=== PATIENT | female | born 1970 | race Caucasian/White ===

== ENCOUNTER 2016-11-25 23:41 | Observation (INO) | payer OTHER ==
[2016-11-26] MEDS ORDERED: NS 1,000 ML IV ONE (00:01)
--- NOTE | 2016-11-26 00:07 | EDPHY ---
H & P Stated Complaint: SnS of bowel obstruction starting today, last one in 2000 Time Seen by Provider: 11/25/16 23:50 HPI/ROS: HPI The patient presents with abdominal pain which is diffuse, cramping and occasionally sharp in nature which has been mostly constant since about 5:00 p.m. today. She has had diarrhea yesterday and today and then developed these symptoms after returning home from a medical conference. She has felt nauseated though is able to tolerate fluids by mouth. She has not had a fever, she denies any known sick contacts. She says her symptoms feel similar as to when she had the volvulus in 2001. REVIEW OF SYSTEMS Constitutional: No fever, no chills. Eyes: No discharge. ENT: No sore throat. Cardiovascular: No chest pain, no palpitations. Respiratory: No cough, no shortness of breath. Gastrointestinal: No abdominal pain, no vomiting. Genitourinary: No hematuria. Musculoskeletal: No back pain. Skin: No rashes. Neurological: No headache. 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 Neurological: A&O, moves all extremities Skin: Warm and dry, no rashes Musculoskeletal: Neck is supple non tender Extremities: symmetrical, full range of motion Psychiatric: Patient is oriented X 3, there is no agitation Source: Patient Exam Limitations: No limitations - Personal History LMP (Females 10-55): 8-14 Days Ago Current Tetanus/Diphtheria Vaccine: Yes Current Tetanus Diphtheria and Acellular Pertussis (TDAP): Yes Tetanus Vaccine Date: 2015 - Medical/Surgical History Hx Asthma: No Hx Chronic Respiratory Disease: No Hx Diabetes: No Hx Cardiac Disease: No Hx Renal Disease: No Hx Cirrhosis: No Hx Alcoholism: No Hx HIV/AIDS: No Hx Splenectomy or Spleen Trauma: No Other PMH: chrohn's, bowel resection 2000 - Social History Smoking Status: Never smoked Constitutional: Initial Vital Signs Temperature (C) 36.5 C 11/25/16 23:46 Heart Rate 84 11/25/16 23:46 Respiratory Rate 16 11/25/16 23:46 Blood Pressure 127/63 H 11/25/16 23:46 O2 Sat (%) 97 11/25/16 23:46 O2 Delivery Mode Room Air Allergies/Adverse Reactions: morphine Allergy (Verified 11/25/16 23:46) Penicillins Allergy (Verified 11/25/16 23:46) Home Medications: Medication Instructions Recorded Questran 11/25/16 Seroquel 25 mg (*) 11/25/16 Vitamin B12 11/25/16 Medical Decision Making - Diagnostics Imaging Results: KUB two views shows nonspecific bowel gas pattern in the colon, I reviewed these images and discussed them with Dr. Mark. CT scan abdomen pelvis with IV contrast demonstrates a clustered collection of small bowel in the left flank associated with a few surgical clips, bowel loops entering and exiting the area have edema and fluid between them which is suspicious for internal hernia versus an adhesion. Higher in the left abdomen there is a 7 cm loop of mildly edematous jejunum with fecalization of the duodenum and proximal jejunum, I have discussed this with Dr. Mark of Radiology. Differential Diagnosis: This is a 46-year-old female with history of Crohn's disease status post hemicolectomy remotely and volvulus with bowel resection [place] [address] Christensen, presenting now with abdominal pain, diarrhea, nausea. Differential diagnosis includes small bowel obstruction, recurrence of Crohn's, gastroenteritis. In the emergency room, the patient was given IV fluids and a dose of Dilaudid with improvement in her symptoms. Labs were checked and revealed a leukocytosis and slight elevation in her ALT and AST. Abdominal series was initially performed to avoid a CT scan. This demonstrated nonspecific gas pattern throughout the colon. I discussed the case with the surgeon on-call for Dr. Christensen, Dr. Lu. He agrees with plan for admission and surgical consult in the morning. I discussed the results patient's studies with her and she agreed to proceed with CT scan which raises suspicion for partial or early small bowel obstruction in the left flank. Given patient's improvement in her symptoms, I will not place an NG tube currently, she is not vomiting. I discussed the case with Dr. Deyvi Pastrana of the hospitalist service who will admit the patient. I have ordered her bed in the hospital. I have discussed the plan with her. - Data Points Laboratory Results: Laboratory Results 11/26/16 00:00 11/26/16 00:00 11/26/16 11/26/16 00:00 00:00 WBC 14.76 10^3/uL H 10^3/uL (3.80-9.50) RBC 5.16 10^6/uL 10^6/uL (4.18-5.33) Hgb 14.6 g/dL g/dL (12.6-16.3) Hct 43.5 % % (38.0-47.0) MCV 84.3 fL fL (81.5-99.8) MCH 28.3 pg pg (27.9-34.1) MCHC 33.6 g/dL g/dL (32.4-36.7) RDW 13.0 % % (11.5-15.2) Plt Count 353 10^3/uL 10^3/uL (150-400) MPV 9.5 fL fL (8.7-11.7) Neut % (Auto) 84.3 % H % (39.3-74.2) Lymph % (Auto) 9.4 % L % (15.0-45.0) [place] % (Auto) 5.3 % % (4.5-13.0) Eos % (Auto) 0.4 % L % (0.6-7.6) Baso % (Auto) 0.3 % % (0.3-1.7) Nucleat RBC Rel Count 0.0 % % (0.0-0.2) Absolute Neuts (auto) 12.44 10^3/uL H 10^3/uL (1.70-6.50) Absolute Lymphs (auto) 1.39 10^3/uL 10^3/uL (1.00-3.00) Absolute Monos (auto) 0.78 10^3/uL 10^3/uL (0.30-0.80) Absolute Eos (auto) 0.06 10^3/uL 10^3/uL (0.03-0.40) Absolute Basos (auto) 0.04 10^3/uL 10^3/uL (0.02-0.10) Absolute Nucleated RBC 0.00 10^3/uL 10^3/uL (0-0.01) Immature Gran % 0.3 % % (0.0-1.1) Immature Gran # 0.05 10^3/uL 10^3/uL (0.00-0.10) Sodium 136 mEq/L mEq/L (134-144) Potassium 4.0 mEq/L mEq/L (3.5-5.2) Chloride 105 mEq/L mEq/L (97-110) Carbon Dioxide 23 mEq/l mEq/l (22-31) Anion Gap 8 mEq/L mEq/L (8-16) BUN 12 mg/dL mg/dL (7-23) Creatinine 0.8 mg/dL mg/dL (0.6-1.0) Estimated GFR > 60 Glucose 94 mg/dL mg/dL (70-100) Calcium 9.4 mg/dL mg/dL (8.5-10.4) Total Bilirubin 0.9 mg/dL mg/dL (0.1-1.4) AST 51 IU/L H IU/L (14-46) ALT 75 IU/L H IU/L (9-52) Alkaline Phosphatase 81 IU/L IU/L (38-126) Total Protein 7.0 g/dL g/dL (6.3-8.2) Albumin 4.2 g/dL g/dL (3.5-5.0) Medications Given: Discontinued Medications Hydromorphone HCl (Dilaudid) 0.5 mg IVP EDNOW ONE Stop: 11/26/16 00:18 Last Admin: 11/26/16 00:41 Dose: 0.5 mg Sodium Chloride (Ns) 1,000 mls @ 0 mls/hr IV ONCE ONE PRN Reason: Wide Open Stop: 11/26/16 00:02 Last Admin: 11/26/16 00:12 Dose: 1,000 mls Ondansetron HCl (Zofran) 4 mg IVP EDNOW ONE Stop: 11/26/16 00:18 Last Admin: 11/26/16 00:42 Dose: 4 mg Departure - Departure Disposition: [facility] Acute Clinical Impression: Partial small bowel obstruction Leukocytosis Qualifiers: Leukocytosis type: unspecified Qualified Code(s): D72.829 - Elevated white blood cell count, unspecified Abdominal pain Qualifiers: Abdominal location: generalized Qualified Code(s): R10.84 - Generalized abdominal pain Condition: Fair
[2016-11-26 00:15] LABS: % IMMATURE GRANULYOCYTES 0.3 % (0.0-1.1); ABSOLUTE IMMATURE GRANULOCYTES 0.05 10^3/uL (0.00-0.10); ADD DIFF? NO; ADD MORPH? NO; ADD SCAN? NO; ATYPICAL LYMPHOCYTE FLAG 0 (0-99); FRAGMENT RBC FLAG 0 (0-99); HEMATOCRIT 43.5 % (38.0-47.0); HEMOGLOBIN 14.6 g/dL (12.6-16.3); LEFT SHIFT FLG 0 (0-99); LIPEMIA HEMOLYSIS FLAG 80 (0-99); MEAN CELL HEMOGLOBIN 28.3 pg (27.9-34.1); MEAN CELL HEMOGLOBIN CONCENTR. 33.6 g/dL (32.4-36.7); MEAN CELL VOLUME 84.3 fL (81.5-99.8); MEAN PLATELET VOLUME 9.5 fL (8.7-11.7); PLATELET CLUMPS FLAG 0 (0-99); PLATELET COUNT 353 10^3/uL (150-400); RED BLOOD CELL COUNT 5.16 10^6/uL (4.18-5.33)
[2016-11-26] MEDS ORDERED: HYDROmorphONE/DILAUDID 1 MG/ML SYR IVP ONE (00:17)
[2016-11-26] MEDS ORDERED: ONDANSETRON 4 MG/2 ML VIAL IVP ONE (00:17)
[2016-11-26 00:25] LABS: ALANINE AMINOTRANSFERASE 75 IU/L (9-52); ALBUMIN 4.2 g/dL (3.5-5.0); ALKALINE PHOSPHATASE 81 IU/L (38-126); ANION GAP 8 mEq/L (8-16); ASPARTATE AMINOTRANSFERASE 51 IU/L (14-46); BILIRUBIN,TOTAL 0.9 mg/dL (0.1-1.4); CALCIUM 9.4 mg/dL (8.5-10.4); CARBON DIOXIDE 23 mEq/l (22-31); CHLORIDE 105 mEq/L (97-110); CREATININE 0.8 mg/dL (0.6-1.0); GLOMERULAR FILTRATION RATE > 60; GLUCOSE 94 mg/dL (70-100); SODIUM 136 mEq/L (134-144)
[2016-11-26] MEDS ORDERED: IOPAMIDOL (ISOVUE-300) 100 ML BTL IV ONE (01:24)
[2016-11-26] MEDS ORDERED: NS 1,000 ML IV SCH (02:00)
[2016-11-26] MEDS ORDERED: METOCLOPRAMIDE 10 MG TAB PO PRN (02:52)
[2016-11-26] MEDS ORDERED: METOCLOPRAMIDE 10 MG/2 ML VIAL IVP PRN (02:52)
[2016-11-26] MEDS ORDERED: ONDANSETRON DISINTEGRATING 4 MG TAB PO PRN (02:53)
[2016-11-26] MEDS ORDERED: HYDROmorphONE/DILAUDID 1 MG/ML SYR IVP PRN (02:53)
[2016-11-26] MEDS ORDERED: ONDANSETRON 4 MG/2 ML VIAL IVP PRN (02:53)
--- NOTE | 2016-11-26 03:01 | PDGENHP ---
History and Physical - Chief Complaint Acute abdominal pain - History of Present Illness care provider: Dr. Rasmussen Primary general surgeon: Dr. Christensen HPI: 46-year-old female presenting with acute abdominal pain characterized as cramping, sharp pain located diffusely throughout her abdomen with associated nausea and diarrhea, with onset of symptoms around 5:00 p.m. on the day of presentation. Duration has been persistent thereafter. Pain has been mostly alleviated by IV Dilaudid. Prior to the onset of symptoms, the patient had been feeling somewhat bloated and was experiencing loose bowel movements, but she associated this with recent dietary changes at a conference she was attending. The symptoms felt similar in character to those experienced approximately 15 years ago when she had a volvulus and required bowel surgery. History Information - Allergies/Home Medication List Allergies/Adverse Reactions: morphine Allergy (Verified 11/25/16 23:46) Penicillins Allergy (Verified 11/25/16 23:46) Home Medications: Questran 11/25/16 [Last Taken Unknown] Seroquel 25 mg (*) 11/25/16 [Last Taken Unknown] Vitamin B12 11/25/16 [Last Taken Unknown] I have personally reviewed and updated: family history, medical history, social history, surgical history - Past Medical History Additional medical history: Crohn's disease remotely with volvulus in 2000 - Surgical History Additional surgical history: bowel surgery in 2000 - Family History Additional family history: no recent sick family contacts - Social History Smoking Status: Never smoked Additional social history: recently returned from an out of town medical conference Review of Systems ROS: 10pt was reviewed & negative except for what was stated in HPI & below Gastrointestinal: Reports: abdominal pain, diarrhea, nausea Physical Exam Temp Pulse Resp BP Pulse Ox 36.5 C 84 16 127/63 H 97 11/25/16 23:46 11/25/16 23:46 11/25/16 23:46 11/25/16 23:46 11/25/16 23:46 Constitutional: no apparent distress, appears nourished, not in pain Eyes: PERRL, anicteric sclera, EOMI Ears, Nose, Mouth, Throat: hearing normal, other ( tacky mucous membranes) Cardiovascular: regular rate and rhythym, no murmur, rub, or gallop, No edema Respiratory: no respiratory distress, no rales or rhonchi, clear to auscultation Gastrointestinal: normoactive bowel sounds, soft, non-tender abdomen, no palpable masses, No guarding, No distension Skin: warm, normal color, no rashes or abrasions, No mottled Neurologic: AAOx3, No facial droop Psychiatric: interacting appropriately, not anxious, not encephalopathic, thought process linear Lab Data & Imaging Review 11/26/16 00:00 11/26/16 00:00 WBC 14.76 10^3/uL (3.80-9.50) H 11/26/16 00:00 RBC 5.16 10^6/uL (4.18-5.33) 11/26/16 00:00 Hgb 14.6 g/dL (12.6-16.3) 11/26/16 00:00 Hct 43.5 % (38.0-47.0) 11/26/16 00:00 MCV 84.3 fL (81.5-99.8) 11/26/16 00:00 MCH 28.3 pg (27.9-34.1) 11/26/16 00:00 MCHC 33.6 g/dL (32.4-36.7) 11/26/16 00:00 RDW 13.0 % (11.5-15.2) 11/26/16 00:00 Plt Count 353 10^3/uL (150-400) 11/26/16 00:00 MPV 9.5 fL (8.7-11.7) 11/26/16 00:00 Neut % (Auto) 84.3 % (39.3-74.2) H 11/26/16 00:00 Lymph % (Auto) 9.4 % (15.0-45.0) L 11/26/16 00:00 [place] % (Auto) 5.3 % (4.5-13.0) 11/26/16 00:00 Eos % (Auto) 0.4 % (0.6-7.6) L 11/26/16 00:00 Baso % (Auto) 0.3 % (0.3-1.7) 11/26/16 00:00 Nucleat RBC Rel Count 0.0 % (0.0-0.2) 11/26/16 00:00 Absolute Neuts (auto) 12.44 10^3/uL (1.70-6.50) H 11/26/16 00:00 Absolute Lymphs (auto) 1.39 10^3/uL (1.00-3.00) 11/26/16 00:00 Absolute Monos (auto) 0.78 10^3/uL (0.30-0.80) 11/26/16 00:00 Absolute Eos (auto) 0.06 10^3/uL (0.03-0.40) 11/26/16 00:00 Absolute Basos (auto) 0.04 10^3/uL (0.02-0.10) 11/26/16 00:00 Absolute Nucleated RBC 0.00 10^3/uL (0-0.01) 11/26/16 00:00 Immature Gran % 0.3 % (0.0-1.1) 11/26/16 00:00 Immature Gran # 0.05 10^3/uL (0.00-0.10) 11/26/16 00:00 Sodium 136 mEq/L (134-144) 11/26/16 00:00 Potassium 4.0 mEq/L (3.5-5.2) 11/26/16 00:00 Chloride 105 mEq/L (97-110) 11/26/16 00:00 Carbon Dioxide 23 mEq/l (22-31) 11/26/16 00:00 Anion Gap 8 mEq/L (8-16) 11/26/16 00:00 BUN 12 mg/dL (7-23) 11/26/16 00:00 Creatinine 0.8 mg/dL (0.6-1.0) 11/26/16 00:00 Estimated GFR > 60 11/26/16 00:00 Glucose 94 mg/dL (70-100) 11/26/16 00:00 Calcium 9.4 mg/dL (8.5-10.4) 11/26/16 00:00 Total Bilirubin 0.9 mg/dL (0.1-1.4) 11/26/16 00:00 AST 51 IU/L (14-46) H 11/26/16 00:00 ALT 75 IU/L (9-52) H 11/26/16 00:00 Alkaline Phosphatase 81 IU/L (38-126) 11/26/16 00:00 Total Protein 7.0 g/dL (6.3-8.2) 11/26/16 00:00 Albumin 4.2 g/dL (3.5-5.0) 11/26/16 00:00 Visualized and Interpreted imaging results: Yes Interpretation: KUB demonstrates gas throughout without focal obstruction point Assessment & Plan Assessment: 46-year-old female presents with acute abdominal pain in the setting of prior volvulus Plan: 1. Abdominal pain. Acute, new problem this provider, further workup indicated. Potential etiologies include small-bowel obstruction versus gastroenteritis - CT of the abdomen ordered, preliminary read indicates that she has fecalization in the small bowel and no gas distention of the stomach, there is possible internal hernia with focal gnosticist of the small bowel - patient does not have a surgical abdomen on physical exam - discussed with Dr. Sheriff, she has advised me that Dr. Lu has been consulted in the patient's care and he will evaluate the patient in the morning to reassess - nasogastric tube not currently indicated given patient's improvement in abdominal symptoms and no evidence of gassy distention on CT - supportive care with IV Dilaudid, Reglan as first-line antiemetic, Zofran 2nd line - continue IV fluids - NPO with sips and chips, advanced to clear liquid diet in a.m. if tolerating and patient's abdominal exam does not worsen 2. Transaminitis. Mild, unclear etiology, recommend follow-up outpatient labs Diet. NPO with sips and chips Prophylaxis. Moderate risk patient, SCDs, hold pharmacologic prophylaxis in case surgical intervention required Code. Full Disposition. Anticipated discharge is 11/26/2016, pending further workup and clinical resolution of condition outlined above.
[2016-11-26 03:12] VITALS: O2SAT 95
[2016-11-26 05:19] LABS: % IMMATURE GRANULYOCYTES 0.4 % (0.0-1.1); ABSOLUTE IMMATURE GRANULOCYTES 0.04 10^3/uL (0.00-0.10); ADD DIFF? NO; ADD MORPH? NO; ADD SCAN? NO; ATYPICAL LYMPHOCYTE FLAG 0 (0-99); FRAGMENT RBC FLAG 0 (0-99); HEMATOCRIT 39.5 % (38.0-47.0); HEMOGLOBIN 13.2 g/dL (12.6-16.3); LEFT SHIFT FLG 0 (0-99); LIPEMIA HEMOLYSIS FLAG 80 (0-99); MEAN CELL HEMOGLOBIN 28.8 pg (27.9-34.1); MEAN CELL HEMOGLOBIN CONCENTR. 33.4 g/dL (32.4-36.7); MEAN CELL VOLUME 86.1 fL (81.5-99.8); MEAN PLATELET VOLUME 9.8 fL (8.7-11.7); PLATELET CLUMPS FLAG 10 (0-99); PLATELET COUNT 293 10^3/uL (150-400); RED BLOOD CELL COUNT 4.59 10^6/uL (4.18-5.33); RED CELL DISTRIBUTION WIDTH 13.2 % (11.5-15.2)
[2016-11-26 05:30] LABS: ALANINE AMINOTRANSFERASE 69 IU/L (9-52); ALBUMIN 3.4 g/dL (3.5-5.0); ALKALINE PHOSPHATASE 64 IU/L (38-126); ANION GAP 7 mEq/L (8-16); ASPARTATE AMINOTRANSFERASE 40 IU/L (14-46); BILIRUBIN,TOTAL 0.8 mg/dL (0.1-1.4); CALCIUM 8.4 mg/dL (8.5-10.4); CARBON DIOXIDE 21 mEq/l (22-31); CHLORIDE 109 mEq/L (97-110); CREATININE 0.8 mg/dL (0.6-1.0); GLOMERULAR FILTRATION RATE > 60; GLUCOSE 85 mg/dL (70-100); POTASSIUM 4.2 mEq/L (3.5-5.2); SODIUM 137 mEq/L (134-144); TOTAL PROTEIN 5.8 g/dL (6.3-8.2)
[2016-11-26 08:46] VITALS: BP 81/59; PULSE 64; RESP 16; TEMP 97.9
[2016-11-26] MEDS ORDERED: PROPRANOLOL HCL 20 MG TAB PO PRN (10:38)
--- NOTE | 2016-11-26 14:55 | GDS ---
[f rep st] DISCHARGE SUMMARY DISCHARGE DIAGNOSES: 1. Resolved abdominal pain. Unclear etiology. 2. Mild transaminitis. HOSPITAL COURSE: Abdominal pain: The patient was placed on observation due to abdominal pain. A C T of the abdomen was done that showed adhesions or possibly internal hernia in the left flank. On t he morning of her hospital stay, her abdominal pain resolved and she is now tolerating a regular t. She states she feels well and would like to go home. PHYSICAL EXAMINATION: VITAL SIGNS: On day of discharge, blood pressure 81/59, pulse 64, respirator y rate 16, O2 sat 95% on room air. Temperature afebrile. ABDOMEN: Soft, nontender, nondistended. No guarding or rebound tenderness. Normoactive bowel sounds. PERTINENT LABORATORIES AND STUDIES ON THIS HOSPITAL STAY: Please refer to CT abdomen and pelvis rep ort. DISCHARGE MEDICATIONS: Please refer to discharge medication reconciliation in [facility] for details. DISCHARGE INSTRUCTIONS: The patient will be discharged from the hospital, where she was instructed to follow up with her primary care provider for routine hospital followup. She should consider foll owup with GI if she continues to have diarrhea. I did give her a prescription for Levsin to try if she does have intermittent abdominal pain. /[id number]/MODL
[2016-11-26] MEDS ORDERED: QUEtiapine FUMARATE 25 MG TAB PO SCH (21:00)
[2016-11-27] MEDS ORDERED: NON-FORMULARY NEW DRUG (Cholecalciferol (Vitamin D3) [Vitamin D3] 2,000 UNIT) PO SCH (09:00)
[2016-11-27] MEDS ORDERED: CHOLECALCIFEROL VIT D3 2,000 UNITS TAB/CAP PO SCH (09:00)
[2016-11-27] MEDS ORDERED: Herbals/Supplements -Info Only PO SCH (09:00)
[2016-11-27] MEDS ORDERED: CHOLESTYRAMINE/SUCROSE 4 GM PKT PO SCH (09:00)
[2016-11-28] MEDS ORDERED: CYANO/VITAMIN B12 1000 MCG/ML VIAL IM SCH (11:00)
== END 2016-11-26 12:35 | disposition home or self-care (01) ==
LOC: F1N 11-26 01:32
PROVIDERS: ADMIT Internal Medicine; ATTEND Internal Medicine
DX: R10.9 Unspecified abdominal pain (principal); R19.7 Diarrhea, unspecified; R11.0 Nausea; D72.829 Elevated white blood cell count, unspecified
CPT/HCPCS: 74020; 74177; G0378; 96374; J1170; J2405; Q9967

== ENCOUNTER → 2017-06-08 | Outpatient (CLI) | payer OTHER | LOC: FIMAGING 07:52 | PROVIDERS: ATTEND Internal Medicine | DX: Z12.31 Encounter for screening mammogram for malignant neoplasm of breast (principal) | CPT/HCPCS: G0202 ==

== ENCOUNTER 2018-05-30 13:00 | Inpatient (IN) | payer OTHER ==
[2018-05-30] MEDS ORDERED: HYDROmorphONE/DILAUDID 2 MG/ML INJ IVP ONE (13:23)
[2018-05-30] MEDS ORDERED: NS 1,000 ML IV ONE (13:23)
--- NOTE | 2018-05-30 13:26 | EDPHY ---
H & P Stated Complaint: ruq abd pain Time Seen by Provider: 05/30/18 13:10 HPI/ROS: CHIEF COMPLAINT: Abdominal pain HISTORY OF PRESENT ILLNESS: This is a 48-year-old female with history of Crohn' s disease status post hemicolectomy and status post volvulus in 2001. She presents with approximately 7 hr of abdominal pain that was initially diffuse and now seems to be localized in the right upper quadrant. She had a bowel movement about 4 hr ago and has continued with flatulence. No abdominal distension. No diarrhea. She has not had nausea or vomiting. No fever. She denies urinary symptoms. Initially she thought that this was similar to her volvulus but now she states that the pain is primarily in the right upper abdomen. Severity of the pain has improved since its onset. REVIEW OF SYSTEMS: A ten system review of systems was performed and is negative with the exception of the items mentioned in the HPI. Past medical history: Crohn's disease Past surgical history: Surgery for volvulus in 2000 Social history: She does not use tobacco products. She is a local physician. General Appearance: Alert. Vital signs reviewed. Standing up, bending forward at the waist. Afebrile. Eyes: Pupils equal and round, no conjunctival injection, no discharge. Anicteric. Respiratory: Lungs are clear to auscultation; no wheezes, rales, or rhonchi. Cardiovascular: Regular rate and rhythm; no murmur, rub, or gallop. Gastrointestinal: Abdomen is soft with moderate tenderness in right upper quadrant, no guarding, no masses or organomegaly, bowel sounds decreased. Skin: Warm and dry, no rashes on exposed skin, normal color. Back: No CVAT. Extremities: No lower extremity edema, no calf tenderness or swelling. Neurological: Alert and oriented. Moving all four extremities easily and equally. Psychiatric: Normal affect. - Personal History LMP (Females 10-55): 22-28 Days Ago Current Tetanus Diphtheria and Acellular Pertussis (TDAP): Yes Tetanus Vaccine Date: 2015 - Medical/Surgical History Hx Asthma: No Hx Chronic Respiratory Disease: No Hx Diabetes: No Hx Cardiac Disease: No Hx Renal Disease: No Hx Cirrhosis: No Hx Alcoholism: No Hx HIV/AIDS: No Hx Splenectomy or Spleen Trauma: No Other PMH: chrohn's, bowel resection 2000 - Social History Smoking Status: Never smoked Constitutional: Initial Vital Signs Temperature (C) 37 C 05/30/18 13:05 Heart Rate 63 05/30/18 13:05 Respiratory Rate 18 05/30/18 13:05 Blood Pressure 136/86 H 05/30/18 13:05 O2 Sat (%) 96 05/30/18 13:05 O2 Delivery Mode Room Air Allergies/Adverse Reactions: morphine Allergy (Verified 05/30/18 17:27) Penicillins Allergy (Verified 05/30/18 13:04) Home Medications: Medication Instructions Recorded Cyanocobalamin [Vitamin B12 1,000 mcg IM Q14D 11/26/16 1000MCG/ML (*)] Herbals/Supplements -Info Only 1 ea PO DAILY 11/26/16 Propranolol HCl [Inderal 20mg (*)] 20 mg PO DAILY PRN 11/26/16 Cholestyramine/Sucrose [Questran] 4 gm PO DAILY 05/30/18 Doxycycline Monohydrate 40 mg PO DAILY PRN 05/30/18 [Doxycycline Ir-Dr] QUEtiapine FUMARATE [Seroquel 50 50 mg PO HS 05/30/18 mg (*)] Medical Decision Making - Diagnostics Imaging Results: Imaging Impressions Abdomen Ultrasound 05/30/18 14:22 Impression: Cholelithiasis. The gallbladder is also mildly distended with small amount of pericholecystic fluid and positive sonographic Patino sign. The wall is top normal in thickness. While findings may represent acute cholecystitis, they may also be reactive to adjacent liver disease such as hepatitis. Recommend laboratory/clinical correlation and surgical consultation. Might also consider HIDA scan. Findings and recommendations discussed with EDUARDO ROSS at 1530 hour, 2017. ED Course/Re-evaluation: 48-year-old female with history of Crohn's disease who presents with abdominal pain, originally diffuse and now localized to the right upper quadrant. She has a local physician and is and initially was concerned that she might have a bowel obstruction. She states that she is now more concerned about the possibility of gallbladder disease. CBC, chemistries, liver functions, lipase ordered. She will be given IV Dilaudid for pain relief. This has worked well for her in the past. She does not have a surgical abdomen at the time of my initial evaluation. Re-evaluated at 1:45 p.m.. She is feeling much better after receiving Dilaudid 0.5 mg IV. Re-evaluated at around 3 PM. Abdomen soft with mild RUQ tenderness, no guarding. RUQ US reported to me. It shows a mildly distended gallbladder with a small amount of pericholecystic fluid. There is a positive sonographic Patino sign. Gallbladder wall is at the upper limits of normal in thickness. Common bile duct is normal. Patient was seen in the emergency department by Dr. Meghan Bush. She discussed options with the patient and it has been decided that she will undergo cholecystectomy. She is being admitted to the hospital with Ancef on-call to the operating room. She remained stable while in the emergency department. Differential Diagnosis: Considered a differential diagnosis that includes but is not limited to bowel obstruction, cholelithiasis/cholecystitis, ascending cholangitis, pancreatitis, and hepatitis. - Data Points Laboratory Results: Laboratory Results 05/30/18 13:34 05/30/18 13:34 05/30/18 05/30/18 05/30/18 14:09 13:34 13:34 WBC 13.19 10^3/uL H 10^3/uL (3.80-9.50) RBC 5.12 10^6/uL 10^6/uL (4.18-5.33) Hgb 15.1 g/dL g/dL (12.6-16.3) Hct 44.6 % % (38.0-47.0) MCV 87.1 fL fL (81.5-99.8) MCH 29.5 pg pg (27.9-34.1) MCHC 33.9 g/dL g/dL (32.4-36.7) RDW 13.3 % % (11.5-15.2) Plt Count 375 10^3/uL 10^3/uL (150-400) MPV 9.5 fL fL (8.7-11.7) Neut % (Auto) 81.1 % H % (39.3-74.2) Lymph % (Auto) 10.2 % L % (15.0-45.0) [place] % (Auto) 7.5 % % (4.5-13.0) Eos % (Auto) 0.1 % L % (0.6-7.6) Baso % (Auto) 0.7 % % (0.3-1.7) Nucleat RBC Rel Count 0.0 % % (0.0-0.2) Absolute Neuts (auto) 10.70 10^3/uL H 10^3/uL (1.70-6.50) Absolute Lymphs (auto) 1.35 10^3/uL 10^3/uL (1.00-3.00) Absolute Monos (auto) 0.99 10^3/uL H 10^3/uL (0.30-0.80) Absolute Eos (auto) 0.01 10^3/uL L 10^3/uL (0.03-0.40) Absolute Basos (auto) 0.09 10^3/uL 10^3/uL (0.02-0.10) Absolute Nucleated RBC 0.00 10^3/uL 10^3/uL (0-0.01) Immature Gran % 0.4 % % (0.0-1.1) Immature Gran # 0.05 10^3/uL 10^3/uL (0.00-0.10) Sodium 135 mEq/L mEq/L (135-145) Potassium 4.2 mEq/L mEq/L (3.3-5.0) Chloride 100 mEq/L mEq/L (97-110) Carbon Dioxide 27 mEq/l mEq/l (22-31) Anion Gap 8 mEq/L mEq/L (6-14) BUN 19 mg/dL mg/dL (7-23) Creatinine 0.9 mg/dL mg/dL (0.6-1.0) Estimated GFR > 60 Glucose 92 mg/dL mg/dL (70-100) Calcium 9.9 mg/dL mg/dL (8.5-10.4) Total Bilirubin 1.6 mg/dL H mg/dL (0.1-1.4) Conjugated Bilirubin 1.0 mg/dL H mg/dL (0.0-0.5) Unconjugated Bilirubin 0.6 mg/dL mg/dL (0.0-1.1) AST 1051 IU/L H IU/L (14-46) ALT 454 IU/L H IU/L (9-52) Alkaline Phosphatase 94 IU/L IU/L (38-126) Total Protein 7.0 g/dL g/dL (6.3-8.2) Albumin 4.1 g/dL g/dL (3.5-5.0) Lipase 232 IU/L IU/L (23-300) Urine Color YELLOW Urine Appearance CLEAR Urine pH 6.0 (5.0-7.5) Ur Specific [place] 1.018 (1.002-1.030) Urine Protein NEGATIVE (NEGATIVE) Urine Ketones NEGATIVE (NEGATIVE) Urine Blood NEGATIVE (NEGATIVE) Urine Nitrate NEGATIVE (NEGATIVE) Urine Bilirubin NEGATIVE (NEGATIVE) Urine Urobilinogen NEGATIVE EU EU (0.2-1.0) Ur Leukocyte Esterase NEGATIVE (NEGATIVE) Urine Glucose NEGATIVE (NEGATIVE) Medications Given: Discontinued Medications Hydromorphone HCl (Dilaudid) 0.5 mg IVP EDNOW ONE Stop: 05/30/18 13:24 Last Admin: 05/30/18 13:34 Dose: 0.5 mg Sodium Chloride (Ns) 1,000 mls @ 0 mls/hr IV EDNOW ONE; Wide Open PRN Reason: Protocol Stop: 05/30/18 13:24 Last Admin: 05/30/18 13:34 Dose: 1,000 mls Departure - Departure Disposition: [facility] Acute Clinical Impression: Cholecystitis Condition: Good
[2018-05-30 13:47] LABS: PLATELET COUNT 375 10^3/uL (150-400)
[2018-05-30] MEDS ORDERED: PROMETHAZINE HCL 25 MG/ML INJ IVP PRN ×2 (16:35→21:58)
[2018-05-30] MEDS ORDERED: ONDANSETRON DISINTEGRATING 4 MG TAB PO PRN (16:35)
[2018-05-30] MEDS ORDERED: ACETAMINOPHEN 325 MG TAB PO PRN (16:35)
[2018-05-30] MEDS ORDERED: QUEtiapine FUMARATE 50 MG TAB PO PRN (16:37)
[2018-05-30] MEDS ORDERED: D5W 1/2 NS W/ 20 KCl/L 1,000 ML IV SCH (16:45)
[2018-05-30] MEDS: HYDROmorphONE/DILAUDID 1 MG/ML INJ IVP PRN (18:56)
[2018-05-30] MEDS ORDERED: LR 1,000 ML IV ONE (19:10)
--- NOTE | 2018-05-30 19:35 | PDANEPAE ---
ANE History of Present Illness 48 yo female with h/o Crohn's now with RUQ tenderness for cholecystectomy. ANE Past Medical History - Cardiovascular History Hx Chest Pain: No Hx Coronary Artery / Peripheral Vascular Disease: No Hx CHF / Valvular Disease: No Hx Palpitations: No - Pulmonary History Hx COPD: No Hx Asthma/Reactive Airway Disease: No Hx Oxygen in Use at Home: No Hx Sleep Apnea: No Sleep Apnea Screening Result - Last Documented: Negative Pulmonary History Comment: h/o croup - Endocrine History Hx Diabetes: No Hypothyroid: No Hyperthyroid: No Obesity: no - Liver History Hx Hepatic Disorders: Yes Hepatic History Comment: elevated LFTs in past and currently - Neurological & Psychiatric Hx Hx Neurological and Psychiatric Disorders: Yes Neurological / Psychiatric History Comment: insomnia - GI History Hx Gastrointestinal Disorders: Yes Gastrointestinal History Comment: Crohn's disease s/p hemicolectomy/volvulus - Other Health History Other Health History: ocular inflammation - Surgical History Prior Surgeries: hemicolectomy ANE Review of Systems Review of Systems: - Systems Constitutional: Reports: no symptoms Cardiac: Reports: no symptoms Gastrointestinal: Reports: abdominal pain ANE Patient History - Allergies Allergies/Adverse Reactions: morphine Allergy (Verified 05/30/18 17:27) Penicillins Allergy (Verified 05/30/18 13:04) - Home Medications Home Medications: Cyanocobalamin [Vitamin B12 1000MCG/ML (*)] 1,000 mcg IM Q14D 11/26/16 [Last Taken 05/28/18] Herbals/Supplements -Info Only 1 ea PO DAILY 11/26/16 [Last Taken Unknown] Propranolol HCl [Inderal 20mg (*)] 20 mg PO DAILY PRN 11/26/16 [Last Taken 05/27] Cholestyramine/Sucrose [Questran] 4 gm PO DAILY 05/30/18 [Last Taken 05/30/18] Doxycycline Monohydrate [Doxycycline Ir-Dr] 40 mg PO DAILY PRN 05/30/18 [Last Taken 05/30/18] QUEtiapine FUMARATE [Seroquel 50 mg (*)] 50 mg PO HS 05/30/18 [Last Taken ] - NPO status NPO Since - Liquids (Date): 05/30/18 NPO Since - Liquids (Time): 10:00 NPO Since - Solids (Date): 05/30/18 NPO Since - Solids (Time): 07:30 - Anes Hx Anes Hx: no prior problems - Smoking Hx Smoking Status: Never smoked - Family Anes Hx Family Anes Hx: neg - N/A ANE Labs/Vital Signs - Labs Result Diagrams: 05/30/18 13:34 05/30/18 13:34 - Vital Signs Blood Pressure: 135/82 Heart Rate: 63 Respiratory Rate: 16 O2 Sat (%): 95 Height: 156.21 cm Weight: 52 kg ANE Physical Exam - Airway Neck exam: FROM Mallampati Score: Class 1 Mouth exam: normal dental/mouth exam - Pulmonary Pulmonary: clear to auscultation - Cardiovascular Cardiovascular: bradycardia - ASA Status ASA Status: II, E ANE Anesthesia Plan Anesthesia Plan: general endotracheal anesthesia
--- NOTE | 2018-05-30 19:48 | GHP ---
DATE OF ADMISSION: 05/30/2018 CHIEF COMPLAINT: Abdominal pain. HISTORY OF PRESENT ILLNESS: The patient is a 48-year-old woman with a history of Crohn disease. She had a resection when she was around 13 years old. She then had a volvulus and had a hemicolectomy in 2001. She started to have abdominal pain this morning. She initially was concerned she had a small bowel obstruction, but it has localized to the right upper quadrant. She had a bowel movement today and continues to pass gas. Due to her pain increasing, she presented to the emergency room for evaluation. PAST MEDICAL HISTORY: Crohn disease. PAST SURGICAL HISTORY: As above. ALLERGIES: Of note, she had a rash to penicillin as a child. Her reaction with morphine at her surgery in 2001, there was some streaking on her arm and tightness in her throat, but she does do well with Dilaudid. SOCIAL HISTORY: She does not use tobacco products. 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 REVIEW OF SYSTEMS: 10-point review of systems negative except per HPI. PHYSICAL EXAMINATION: VITAL SIGNS: 37.5, 59, 147/75, 18, 96% on room air. GENERAL: Pleasant well-nourished, well-groomed woman. HEENT: Normocephalic. No gross hearing deficits. Mucous membranes moist. Pupils equal and round. No scleral icterus. LUNGS: Clear to auscultation bilaterally. No increased work of breathing. CARDIAC: Regular rate. No peripheral edema. ABDOMEN: A very low horizontal surgical incision. She is soft, minimally tender in the right upper quadrant. SKIN: Warm and dry. NEUROLOGIC: Grossly intact. PSYCHIATRIC: Mood and affect normal. RESULTS REVIEWED: Her white blood cell count is 13.19. Her total bilirubin is 1.6 and conjugated 1.0. Her AST and ALT are also elevated and alkaline phosphatase is 94. She had an ultrasound obtained which shows cholelithiasis. There is a small amount of pericholecystic fluid and positive sonographic Patino sign. IMPRESSION AND PLAN: A 48-year-old woman with history of Crohn disease, now with right upper quadrant pain. I believe that this could represent cholecystitis. We also discussed having a confirmatory HIDA scan. The patient would like to proceed with surgery. The risks and benefits, including but not limited to infection, bleeding, damage to common bile duct, need for additional procedures were all discussed. She had her questions answered to her satisfaction and signed the informed consent. /[id number]/MODL MTDD
[2018-05-30] MEDS ORDERED: BUPIVACAINE 0.5% 30 ML SDV ONE (19:51)
[2018-05-30] MEDS ORDERED: LIDOCAINE 2% 2 ML INJ ONE (20:02)
[2018-05-30] MEDS ORDERED: DEXAMETHASONE 4 MG/ML VIAL ONE (20:02)
[2018-05-30] MEDS ORDERED: ROCURONIUM 50 MG/5 ML VIAL ONE (20:02)
[2018-05-30] MEDS ORDERED: PROPOFOL 200 MG/20 ML VIAL ONE ×2 (20:02→20:18)
[2018-05-30] MEDS ORDERED: ONDANSETRON 4 MG/2 ML VIAL ONE ×2 (20:02→20:37)
[2018-05-30] MEDS ORDERED: HYDROmorphONE/DILAUDID 2 MG/ML INJ ONE (20:02)
[2018-05-30] MEDS ORDERED: KETOROLAC 30 MG/1 ML SDV ONE (20:41)
[2018-05-30] MEDS ORDERED: NEOSTIGMINE METHYLSULFATE 5 MG/5 ML SYR ONE (21:01)
[2018-05-30] MEDS ORDERED: GLYCOPYRROLATE 0.2 MG/1 ML VIAL ONE (21:01)
--- NOTE | 2018-05-30 21:14 | POSTOPPROG ---
Post Op Note Date of Operation: 05/30/18 Surgeon: Meghan Bush Anesthesiologist: juan Anesthesia: GET(General Endotracheal) Pre-op Diagnosis: acute seun Post-op Diagnosis: same Indication: 48 yo with acute seun Procedure: lap seun Findings: inflamed gb Inf/Abcess present in the surg proc area at time of surgery?: No Depth: Superfical (Skin SQ) EBL: Minimal Specimen(s): gallbladder
[2018-05-30] MEDS ORDERED: HYDROmorphONE/DILAUDID 2 MG/ML INJ IVP PRN (21:58)
[2018-05-30] MEDS ORDERED: fentaNYL 100 MCG/2 ML INJ IVP PRN (21:58)
[2018-05-30] MEDS ORDERED: LR 500 ML IV PRN (21:58)
[2018-05-30] MEDS ORDERED: NALOXONE HCL 0.4 MG/ML INJ IVP PRN (21:58)
[2018-05-30] MEDS ORDERED: ceFAZolin 2 GM/DEXTROSE 100 ML IV ONE (22:00)
--- NOTE | 2018-05-30 23:20 | GOP ---
DATE OF OPERATION: 05/30/2018 SURGEON: Meghan Bush MD ANESTHESIA: General. ANESTHESIOLOGIST: Kizzy Shukla MD. PREOPERATIVE DIAGNOSIS: Acute cholecystitis. POSTOPERATIVE DIAGNOSIS: Acute cholecystitis. PROCEDURE PERFORMED: Laparoscopic cholecystectomy. FINDINGS: Inflammation by gallbladder. SPECIMENS: Gallbladder. ESTIMATED BLOOD LOSS: 10 cc. INDICATIONS: The patient is a 48-year-old who developed abdominal pain localizing to the right upper quadrant. Ultrasound showed pericholecystic fluid and LFTs were elevated. DESCRIPTION OF PROCEDURE: Patient was brought into the operating room, placed supine on the table, a nd general anesthesia was administered. Her abdomen was prepped and draped in usual sterile fashion. Infiltrated all sites with 0.5% Marcaine prior to making incisions. I made an incision at her umbi licus. I elevated it. I inserted the Veress needle, passed the hanging drop test. Her abdomen insu fflated easily to a pressure of 15 mmHg. I placed a 5 mm camera with a trocar at this site. There w ere no injuries from Veress needle placement. Under direct vision, I placed a 10 mm subxiphoid troca r and two 5 mm trocars along the right costal margin. I lifted her gallbladder cephalad and laterall y. I had to remove a small amount of adhesions. I could then expose the triangle of Calot. She had a cystic artery and cystic duct directly entering the gallbladder and a very diminutive vessel that was also visible. I singly clipped the small vessel and divided the cystic duct and cystic artery. I singly clipped towards the gallbladder, doubly clipped distally, and transected with scissors. I r emoved the gallbladder from the gallbladder fossa with electrocautery. I placed it in an EndoCatch b ag and retrieved it via the 10 mm trocar. Hemostasis achieved on the liver bed. Fascia at the 10 mm trocar site was closed with 0 Vicryl. Skin closed with 4-0 Monocryl. Dermabond applied. She was a wakened in the operating room, extubated, and transferred to PACU in stable condition. /[id number]/MODL
[2018-05-31] MEDS: HYDROmorphONE/DILAUDID 2 MG TAB PO PRN ×2 (00:35→06:44)
[2018-05-31] MEDS: ONDANSETRON 4 MG/2 ML VIAL IVP PRN ×2 (00:37→21:13)
[2018-05-31 05:16] LABS: PLATELET COUNT 337 10^3/uL (150-400)
[2018-05-31] MEDS ORDERED: GADOBUTROL 10 ML VIAL IVP ONE (07:30)
--- NOTE | 2018-05-31 08:33 | SOAPPROG ---
SOP[facility] Progress Note Assessment/Plan: Assessment: POD # 1 s/p lap seun for acute cholecystitis. overall doing well T bili and D Bili are up, transaminase down. Will get MRCP Awaiting return of bowel function Will have clears this am just in case needs ERCP S: No flatus or BM. No nausea O: Sitting up in bed, appears well CTAB Regular rate Bowel sounds hypoactive Incisions cdi Slight distension Plan: 05/31/18 08:30 Objective: Vital Signs Temp Pulse Resp BP Pulse Ox 36.4 C 50 L 18 153/61 H 96 05/31/18 07:28 05/31/18 07:28 05/31/18 07:28 05/31/18 07:28 05/31/18 07:28 Laboratory Results 05/31/18 04:47 05/31/18 04:47 05/30/18 05/31/18 06/01/18 05:59 05:59 05:59 Intake Total 1177 Output Total 210 200 Balance 967 -200 ICD10 Worksheet Patient Problems: Problems Problem Status Onset Cholecystitis Acute Abdominal pain Acute Leukocytosis Acute Partial small bowel obstruction Acute
[2018-05-31] MEDS: HYDROmorphONE/DILAUDID 1 MG/ML INJ IVP PRN ×3 (10:20→21:20)
[2018-05-31] MEDS ORDERED: LR 1,000 ML IV ONE (14:35)
[2018-05-31] MEDS ORDERED: IOTHALAMATE MEG (CONRAY) 50 ML VIAL IV ONE (15:00)
[2018-05-31] MEDS ORDERED: GLUCAGON HCL 1 MG VIAL ONE (15:00)
--- NOTE | 2018-05-31 15:48 | POSTANESTH ---
Post Anesthetic Evaluation Cardiovascular Status: Normal, Stable Respiratory Status: Normal, Stable Level of Consciousness/Mental Status: Can Participate in Eval, Mildly Sleepy, Arousable Pain Control: Adequate, Prn Tx Ordered Nausea/Vomiting Control: Adequate, Prn Tx Ordered Complications Possibly Related to Anesthesia: None Noted
--- NOTE | 2018-05-31 15:49 | PDANEPAE ---
ANE History of Present Illness 48 yo female with h/o Crohn's disease s/p lap seun yesterday with elevated LFTs for ERCP today. ANE Past Medical History - Cardiovascular History Hx Chest Pain: No Hx Coronary Artery / Peripheral Vascular Disease: No Hx CHF / Valvular Disease: No Hx Palpitations: No - Pulmonary History Hx COPD: No Hx Asthma/Reactive Airway Disease: No Hx Oxygen in Use at Home: No Hx Sleep Apnea: No Sleep Apnea Screening Result - Last Documented: Negative Pulmonary History Comment: h/o croup - Endocrine History Hx Diabetes: No Hypothyroid: No Hyperthyroid: No Obesity: no - Liver History Hx Hepatic Disorders: Yes Hepatic History Comment: elevated LFTs in past and currently - Neurological & Psychiatric Hx Hx Neurological and Psychiatric Disorders: Yes Neurological / Psychiatric History Comment: insomnia - GI History Hx Gastrointestinal Disorders: Yes Gastrointestinal History Comment: Crohn's disease s/p hemicolectomy/volvulus - Other Health History Other Health History: ocular inflammation - Surgical History Prior Surgeries: hemicolectomy ANE Review of Systems Review of Systems: ANE Patient History - Allergies Allergies/Adverse Reactions: morphine Allergy (Verified 05/30/18 17:27) Penicillins Allergy (Verified 05/30/18 13:04) - Home Medications Home Medications: Cyanocobalamin [Vitamin B12 1000MCG/ML (*)] 1,000 mcg IM Q14D 11/26/16 [Last Taken 05/28/18] Herbals/Supplements -Info Only 1 ea PO DAILY 11/26/16 [Last Taken Unknown] Propranolol HCl [Inderal 20mg (*)] 20 mg PO DAILY PRN 11/26/16 [Last Taken 05/27] Cholestyramine/Sucrose [Questran] 4 gm PO DAILY 05/30/18 [Last Taken 05/30/18] Doxycycline Monohydrate [Doxycycline Ir-Dr] 40 mg PO DAILY PRN 05/30/18 [Last Taken 05/30/18] QUEtiapine FUMARATE [Seroquel 50 mg (*)] 50 mg PO HS 05/30/18 [Last Taken ] - NPO status NPO Since - Liquids (Date): 05/31/18 NPO Since - Liquids (Time): 08:30 NPO Since - Solids (Date): 05/31/18 NPO Since - Solids (Time): 04:00 - Smoking Hx Smoking Status: Never smoked Marijuana use: No - Alcohol Use Alcohol Use: Rarely - Family Anes Hx Family Anes Hx: neg - N/A ANE Labs/Vital Signs - Labs Result Diagrams: 05/31/18 04:47 05/31/18 04:47 - Vital Signs Blood Pressure: 127/70 Heart Rate: 56 Respiratory Rate: 18 O2 Sat (%): 94 Height: 156.21 cm Weight: 52 kg ANE Physical Exam - Airway Neck exam: FROM Mallampati Score: Class 1 Mouth exam: normal dental/mouth exam - Pulmonary Pulmonary: clear to auscultation - Cardiovascular Cardiovascular: regular rate and rhythym - ASA Status ASA Status: II ANE Anesthesia Plan Anesthesia Plan: general endotracheal anesthesia
[2018-05-31] MEDS ORDERED: HYDROmorphONE/DILAUDID 2 MG/ML INJ ONE ×2 (15:53→16:22)
[2018-05-31] MEDS ORDERED: DEXAMETHASONE 4 MG/ML VIAL ONE (15:59)
[2018-05-31] MEDS ORDERED: LIDOCAINE 2% 5 ML SDV ONE (15:59)
[2018-05-31] MEDS ORDERED: ROCURONIUM 50 MG/5 ML VIAL ONE (15:59)
[2018-05-31] MEDS ORDERED: PROPOFOL/EMULSION 500 MG/50 ML BOTTLE IV ONE ×2 (16:00)
[2018-05-31] MEDS ORDERED: INDOMETHACIN 50 MG SUPP PR ONE (16:00)
--- NOTE | 2018-05-31 16:07 | ASMTCMCOM ---
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 She is independent with no needs, CM available for any changes. DC Plan: Independent Date Signed: 05/31/2018 04:07 PM Electronically Signed By:oSphia Carrasquillo RN
--- NOTE | 2018-05-31 16:46 | PDMN ---
Medical Necessity Medical necessity: Change to inpt as of 05/31/18 @ 0829. Pt meets inpt criteria per MD order and [facility] M-555, Gallbladder or Bile Duct Inflammation or Stone. 48 y /o admitted w/RUQ pain/ acute cholecystitis, POD#1 s/p lap seun, total bili trending up at 2.8, conj bili trending up at 2.1, AST elev at 444, ALT 456, suspect common bile duct stone, ERCP today. Anticipate>2MN for further eval/ treatment.
[2018-05-31] MEDS ORDERED: ONDANSETRON 4 MG/2 ML VIAL ONE (16:51)
[2018-05-31] MEDS ORDERED: PROMETHAZINE HCL 25 MG/ML INJ IVP PRN (16:57)
[2018-05-31] MEDS ORDERED: LR 500 ML IV PRN (16:57)
[2018-05-31] MEDS ORDERED: NALOXONE HCL 0.4 MG/ML INJ IVP PRN (16:57)
[2018-05-31] MEDS ORDERED: HYDROmorphONE/DILAUDID 2 MG/ML INJ IVP PRN (16:57)
--- NOTE | 2018-05-31 17:23 | GIREPORT ---
[facility] Surgical Services - Endoscopy Department Patient Name: Fabi Hicks Procedure Date: 05/31/2018 4:00 PM Patient Type: Inpatient Attending MD/ ER Physician: Stephen Rendon MD Procedure: ERCP Indications: Abdominal pain of suspected biliary origin, Abnormal abdominal MRI, Perry e duct stone(s) Providers: Stephen Rendon MD Medicines: Propofol per Anesthesia, Levaquin 750 mg PO, Indomethacin 100 mg TN Complications: No immediate complications. Description of Procedure: After obtaining informed consent, the scope was passed under direct vis ion. Throughout the procedure, the patient's blood pressure, pulse, and oxyg en saturations were monitored continuously. The Duodenalscope was introduc ed through the mouth, and advanced to the duodenum and used to inject cont rast into the bile duct. The ERCP was accomplished without difficulty. The patient tolerated the procedure well. Findings: A reinsurance analyst film of the abdomen was obtained. Surgical clips, consistent wi th a previous cholecystectomy, were seen in the area of the right upper quad rant of the abdomen. The esophagus was successfully intubated under direct vision. The scope was advanced from the mouth to the duodenum. The phar ynx, larynx and associated structures, as well as the upper GI tract, were normal. The major papilla was bulging. A 0.035 inch straight standard w christopher was passed into the biliary tree. The tapered sphincterotome was passed over the guidewire and the bile duct was then deeply cannulated. Contrast wa s injected. I personally interpreted the bile duct images. Ductal flow of contrast was adequate. Image quality was excellent. Contrast extended t o the entire biliary tree. The common bile duct contained two stones, the lar gest of which was 5 mm in diameter. The main bile duct was diffusely dilated , with a stone causing an obstruction. The largest diameter was 8 mm. A cholecystectomy had been performed. A 12 mm biliary sphincterotomy was made with a monofilament traction (standard) sphincterotome using ERBE electrocautery. The sphincterotomy oozed blood. The biliary tree was sw ept with a 12 mm balloon starting at the bifurcation. Sludge was swept from the duct. All stones were removed. Estimated Blood Loss: Estimated blood loss was minimal. Post Op Diagnosis: - The major papilla appeared to be bulging. - The entire main bile duct was dilated, with a stone causing an obstru ction. - The patient has had a cholecystectomy. - Choledocholithiasis was found. Complete removal was accomplished by biliary sphincterotomy and balloon extraction. - A biliary sphincterotomy was performed. - The biliary tree was swept. Recommendation: - Clear liquid diet today. - Check liver enzymes (AST, ALT, alkaline phosphatase, bilirubin) in th e morning. - Check [facility] - [facility]. - No aspirin, ibuprofen, naproxen, or other non-steroidal anti-inflamma tory drugs for 3 days after sphincterotomy to prevent bleeding. - Watch for pancreatitis, bleeding, perforation, and cholangitis. - The findings and recommendations were discussed with the surgeon, wit h the patient and with the patient's family. - Thank you for allowing me to be involved in the care of your patient. Attending Participation: I personally performed the entire procedure without the assistance of a fellow, resident or surg ical respiratory care assistant. Stephen Rendon MD Stephen Rendon MD 05/31/2018 5:23:49 PM This report has been signed electronicallyDavid MD Justice Number of Addenda: 0 Note Initiated On: 05/31/2018 4:00 PM [email or web address]
--- NOTE | 2018-05-31 18:04 | GCON ---
REQUESTING PROVIDER: Dr. Reyes Dear Dr. Reyes, Thank you very kindly for asking me to evaluate DrIvette Cohndoyle for abdominal pain. She had a laparosco pic cholecystectomy for symptomatic cholelithiasis yesterday on May 30. She had abnormal liver tests including both cholestasis and transaminitis preoperatively. She developed worsening right-si ded abdominal discomfort today after surgery. Liver tests noted an increase in her total bilirubin w ith improvement in the transaminases. An MRCP was performed, which showed filling defects in the dis yajaira common bile duct consistent with choledocholithiasis and a common bile duct that is dilated at 8 mm along with mild intrahepatic ductal dilatation. The liver is mildly fatty in infiltration and the gallbladder was surgically absent. I am asked to assist with further evaluation and management. PAST MEDICAL HISTORY: Significant for: 1. Cholelithiasis. 2. Crohn's disease, both small bowel and colonic. 3. A history of intestinal volvulus with surgical resection, partial and complete bowel obstructions . 4. Depression. PAST SURGICAL HISTORY: A right hemicolectomy in 2001 for volvulus, Crohn's obstruction with surgery, small bowel obstruction surgery related to Crohn's. MEDICATIONS: On admission include a B12 herbal supplement, Inderal as needed for palpitations, seun styramine 4 g daily to manage postoperative diarrhea, Seroquel 50 mg daily. SOCIAL HISTORY: No tobacco. No alcohol. 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 FAMILY HISTORY: Negative for Crohn's disease or gallbladder problems. REVIEW OF SYSTEMS: CONSTITUTIONAL: No fever, chills. Her appetite has been poor. HEENT: Denies h eadache, visual disturbances, sore throat, or neck pain. PULMONARY: No cough or shortness of breath . CARDIOVASCULAR: No chest pain or palpitations. GI: Her abdomen is tender, but more localized no w into the right upper quadrant, worse before it had been more generalized. The pain radiates up int o her scapula and shoulder. Denies diarrhea, hematochezia, melena. She has been somewhat nauseous. No vomiting. No dysphagia. No heartburn. RHEUMATOLOGIC: No joint pain. DERMATOLOGIC: No rash o r jaundice. No pruritus. HEMATOLOGIC: No bruising, epistaxis, or bleeding disorders. GYNECOLOGIC: No vaginal discharge or bleeding. GENITOURINARY: No hematuria, dysuria, or flank pain. PHYSICAL EXAM: VITAL SIGNS: Blood pressure 127/70 with a pulse of 56, oxygenation is 94% on room ai r, temperature is 37.1, respirations are 18. GENERAL: Healthy female in no acute distress. HEENT: Normocephalic, atraumatic. Sclerae are anicteric. Oropharynx is clear. NECK: Supple. PULMONARY: Clear to auscultation bilaterally. CARDIOVASCULAR: Regular rate and rhythm without murmur, rub, o r gallop. GI: Abdomen has laparoscopic incisions that are well healed. There is significant tender ness to palpation mostly on the right side of the abdomen and worse up in the right upper quadrant. No guarding or rebound. The abdomen is nondistended. Bowel sounds are hypoactive. EXTREMITIES: No cyanosis, clubbing, or edema. No palmar erythema. MUSCULOSKELETAL: No joint deformity, swelling, or warmth. DERMATOLOGIC: No jaundice or rash. NEUROLOGIC: Alert to person, place, and time. Cran ial nerves normal. Motor nonfocal. DATABASE: Includes a white count of 11.1, hematocrit 41.8, platelets are 337. Sodium 135, potassium 4.2, chloride 100, bicarbonate 27, BUN 19, creatinine 0.9, calcium 9.9. Liver tests today showed a total bilirubin of 2.8 with a direct of 2.1 and an indirect of 0.7, AST is 444, ALT is 456, alkaline phosphatase is 96. Imaging includes an initial abdominal ultrasound on 05/30/2018. This showed chol elithiasis with gallbladder distention and a small amount of pericholecystic fluid. There was a posi tive Patino sign. The wall is borderline thickened. MRCP May 31, 2018: There is mild intra- an d extrahepatic biliary ductal dilatation with the common bile duct dilated to 8 mm. Previously in co mparison to ultrasound (which it was 3 mm), there were several small filling defects in the distal co mmon bile duct and a 2 cm central filling defect consistent with choledocholithiasis. The liver is f atty infiltrated mostly near the falciform ligament. The bowel is normal in caliber without obstruct ion. The mesenteric vasculature is patent. IMPRESSION: 1. Right upper quadrant pain. 2. Abnormal liver tests, both transaminitis and cholestasis. 3. Choledocholithiasis. 4. Abnormal MRCP documenting choledocholithiasis. RECOMMENDATIONS: 1. N.p.o. 2. ERC with sphincterotomy and stone extraction. 3. Levaquin prophylaxis for the procedure. 4. Indomethacin 100 mg p.r. preprocedure to help prevent pancreatitis. 5. The risks and benefits of endoscopic management of choledocholithiasis were reviewed in detail [employer] Dr. Hicks. She expressed an understanding of the risks, benefits, including bleeding, bowel in jury, infection, pancreatitis, with the greatest risk of pancreatitis being close to 5%. All questio ns were answered. We will proceed with ERC today. 6. Anesthesia consultation. 7. Further recommendations to follow her procedure. /[id number]/MODL
[2018-06-01] MEDS: HYDROmorphONE/DILAUDID 1 MG/ML INJ IVP PRN ×6 (03:42→21:44)
[2018-06-01 05:31] LABS: PLATELET COUNT 312 10^3/uL (150-400)
[2018-06-01] MEDS: KETOROLAC 15 MG/1 ML SDV IVP PRN ×2 (09:28→17:03)
--- NOTE | 2018-06-01 12:35 | SOAPPROG ---
SOAP Progress Note Assessment/Plan: Assessment: POD # 2 s/p lap seun for acute cholecystitis and POD # 1 s/p ERCP for choledocolithiasis Now with pancreatitis Had CP this am and EKG and trop wnl Clears once abdominal pain improves. Have increased IVF Will need continued admission due to poor po intake secondary to pancreatitis Crohns S: Flatus, ambulating. Abdominal pain. Had emesis last night. Pain after jello this am O: Sitting up in bed, appears well CTAB Regular rate Bowel sounds present Incisions cdi with slight ecchymosis Distension improved Plan: 18 08:30 06/01/18 12:32 Objective: Vital Signs Temp Pulse Resp BP Pulse Ox 36.5 C 60 12 120/71 95 06/01/18 11:16 06/01/18 11:16 06/01/18 11:16 06/01/18 11:16 06/01/18 11:16 Laboratory Results 06/01/18 04:56 06/01/18 04:56 05/31/18 06/01/18 06/02/18 05:59 05:59 04:59 Intake Total 1380 Output Total 0 Balance 1380 ICD10 Worksheet Patient Problems: Problems Problem Status Onset Cholecystitis Acute Abdominal pain Acute Leukocytosis Acute Partial small bowel obstruction Acute
--- NOTE | 2018-06-01 12:38 | SOAPPROG ---
KATINA Progress Note Assessment/Plan: Assessment:Plan: 1) CBD stone - s/p ERCp with clearance of duct, bili down, AST/ALT will decrease 2) pancreatitis - has what appears to be a mild post ERCp pancreatitis with pain controlled with Toradol and low dose Dilaudid 3) Diet - she will retry clear liquids either later today or tomorrow 4) pulm - will order incentive spirometer will follow 06/01/18 12:38 Subjective: CC- CBD stone s/p ERCp with post procedure pancreatitis smiling, sitting in her chair didn't tolerate PO intake earlier pain is controlled Objective: Vital Signs Temp Pulse Resp BP Pulse Ox 36.5 C 60 12 120/71 95 06/01/18 11:16 06/01/18 11:16 06/01/18 11:16 06/01/18 11:16 06/01/18 11:16 Laboratory Results 06/01/18 04:56 06/01/18 04:56 05/31/18 06/01/18 06/02/18 05:59 05:59 04:59 Intake Total 1380 Output Total 0 Balance 1380 A+Ox3 CTA but decreased at base S1S2 +BS, soft tender no r/g Laboratory Tests 05/30/18 05/31/18 06/01/18 13:34 04:47 04:56 Total Bilirubin 1.6 H 2.8 H AST 1051 H 444 H 144 H ALT 454 H 456 H 278 H Lipase 232 06/01/18 04:56 Total Bilirubin 0.9 AST 145 H ALT 286 H Lipase 9547 H ICD10 Worksheet Patient Problems: Problems Problem Status Onset Cholecystitis Acute Abdominal pain Acute Leukocytosis Acute Partial small bowel obstruction Acute
[2018-06-02] MEDS: KETOROLAC 15 MG/1 ML SDV IVP PRN ×2 (00:09→06:11)
[2018-06-02] MEDS: HYDROmorphONE/DILAUDID 1 MG/ML INJ IVP PRN ×3 (00:09→06:10)
[2018-06-02 07:23] VITALS: BP 128/75
--- NOTE | 2018-06-02 09:17 | SOAPPROG ---
SOAP Progress Note Assessment/Plan: Assessment: POD # 3 s/p lap seun for acute cholecystitis and POD # 2 s/p ERCP for choledocolithiasis Now with pancreatitis - resolving. Tolerating clears, advanced diet If does well, can dc this afternoon and repeat labs Crohns S: Flatus and BM, ambulating. Abdominal pain improved. Doing well O: Sitting up in chair, appears well CTAB Regular rate Bowel sounds present Incisions cdi with slight ecchymosis No distension Plan: 18 08:30 06/01/18 12:32 06/02/18 09:13 Objective: Vital Signs Temp Pulse Resp BP Pulse Ox 36.9 C 63 16 128/75 H 93 06/02/18 07:21 06/02/18 07:21 06/02/18 07:21 06/02/18 07:21 06/02/18 07:21 Laboratory Results 06/01/18 04:56 06/01/18 04:56 06/01/18 06/02/18 06/03/18 06:59 05:59 05:59 Intake Total Output Total Balance ICD10 Worksheet Patient Problems: Problems Problem Status Onset Cholecystitis Acute Abdominal pain Acute Leukocytosis Acute Partial small bowel obstruction Acute
[2018-06-02] MEDS: HYDROmorphONE/DILAUDID 2 MG TAB PO PRN (09:43)
--- NOTE | 2018-06-02 13:03 | SOAPPROG ---
KATINA Progress Note Assessment/Plan: Assessment:Plan: 1) CBD stone - s/p ERCp with clearance of duct, bili down, AST/ALT will decrease 2) pancreatitis - has what appears to be a mild post ERCp pancreatitis with pain controlled with Toradol and low dose Dilaudid 3) Diet - she will retry clear liquids either later today or tomorrow 4) pulm - will order incentive spirometer will follow 06/01/18 12:38 06/02/18 12:59 as above better but still with resolving pancreatitis tolerating diet, wants to go home 1) pancreatitis - pain better, Lipase down a bit. continue low fat low protein diet for few days at home, then ADAT 2) CBD stone - out s/p ERCp, lft's decreasing as expected 3) dispo - home today 06/02/18 13:02 Subjective: CC- post ERCp pancreatitis overall better but not resolved completely eating w/o much pain told her she should rest at home for days Objective: Vital Signs Temp Pulse Resp BP Pulse Ox 36.9 C 63 16 128/75 H 93 06/02/18 07:21 06/02/18 07:21 06/02/18 07:21 06/02/18 07:21 06/02/18 07:21 Laboratory Results 06/01/18 04:56 06/01/18 04:56 06/01/18 06/02/18 06/03/18 06:59 05:59 05:59 Intake Total Output Total Balance A+Ocx3 +BS, soft tender no r/g s1s2 Laboratory Tests 05/31/18 06/01/18 06/01/18 04:47 04:56 04:56 Total Bilirubin 2.8 H 0.9 AST 144 H 145 H ALT 278 H 286 H Lipase 9547 H 06/02/18 05:02 Total Bilirubin 0.6 AST 57 H ALT 170 H Lipase 7902 H ICD10 Worksheet Patient Problems: Problems Problem Status Onset Cholecystitis Acute Abdominal pain Acute Leukocytosis Acute Partial small bowel obstruction Acute
--- NOTE | 2018-06-02 14:37 | ASDISCHSUM ---
Discharge Information Plan Status:Home with No Needs Medically Cleared to Leave:06/02/2018 Discharge Date:06/02/2018 CM D/C Disposition:Home, Routine, Self-Care ADT D/C Disposition:Home, Routine, Self-Care Projected Discharge Date:06/02/2018 Transportation at D/C:Family Discharge Delay Reason: Follow-Up Date:06/02/2018 Discharge Slot:2 - 12:01 pm - 18:00 pm Final Diagnosis:CBD stone, pancreatitis, s/p ERCP Placement Information Patient Contact Information Contact Name:LISA Relationship: Address:[address] Work Phone: [facility] Phone: State/Zip Code:[place] [address] Email: Financial Information Financial Class:Robert Applebaum MD Primary Plan Desc:DAVID GARY [facility] [place] Primary Plan Number:[id number] Secondary Plan Desc: Secondary Plan Number: Assessment Information LACE LACE Length of stay for Answers: 2 days current admission Acuity / Level of Answers: Yes Care: Did the patient have an inpatient admission? 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 She is independent with no needs, CM available for any changes. DC Plan: Independent Date Signed: 05/31/2018 04:07 PM Electronically Signed By:Sophia Carrasquillo RN Case Management Discharge Plan Note Case Management Discharge Discharge Order Complete? Answers: Yes Patient to Obtain Answers: Independently Medications Transportation Arranged Answers: Family/Friends Transport will Pick (Date 06/02/2018 12:00 AM & Time) EMTALA Complete Answers: No Notes: N/A Case Management Transport Answers: No Notes: N/A Form Complete Faxed Final Orders Answers: No Notes: N/A Agency/Facility Transfer Answers: No Notes: N/A Report Printed & Faxed to Receiving Agency Family Notified Answers: Yes Notes: Pt to notify Discharge Comments Notes: Reviewed chart regarding discharge plan of care, pt's progress. Pt to discharge home independently with family support and no identified needs. NO IM/TENA forms signed, not applicable. Pt to follow up as directed. CM available for any further issues or concerns. Discharge Plan: Home Independently Date Signed: 06/02/2018 02:36 PM Electronically Signed By:Neela De Leon RN Intervention Information
--- NOTE | 2018-06-02 14:58 | CPEKG ---
Test Reason : OPEN Blood Pressure : / mmHG Vent. Rate : 060 BPM Atrial Rate : 057 BPM P-R Int : 122 ms QRS Dur : 086 ms QT Int : 395 ms P-R-T Axes : 067 046 030 degrees QTc Int : 395 ms Sinus rhythm Confirmed by Martin Anguiano ([id number]) on 06/02/2018 2:57:17 PM Referred By: Confirmed By:Martin Anguiano
--- NOTE | 2018-06-03 07:35 | GDS ---
REASON FOR ADMISSION: The patient is a 48-year-old who developed abdominal pain that localized to th e right upper quadrant. Ultrasound showed cholecystitis. White count was elevated, LFTs elevated. PRIMARY DIAGNOSIS: Choledocholithiasis. OTHER PERTINENT DIAGNOSES: Postprocedure pancreatitis, Crohn disease. HOSPITAL COURSE: The patient was admitted and taken to the operating room for cholecystectomy. On p ostop day #1 her LFTs were elevated. MRCP performed, which showed dilation of the common bile duct a nd debris contained within. She underwent ERCP. On postoperative day #2, she developed pancreatitis . On postoperative day #3, she was able to tolerate a diet, and her pain was controlled. She was re beto for discharge. CONDITIONS ON DISCHARGE: 1. Pain controlled. 2. Tolerates diet. 3. Ambulates independently. DISCHARGE MEDICATIONS: She was discharged home with quantity 20 of Dilaudid. DISCHARGE INSTRUCTIONS: She will get followup labs in 1 week. /[id number]/MODL
== END 2018-06-02 14:43 | disposition home or self-care (01) | DRG 417 ==
LOC: F3E 17:32 → OBSVTOIN 05-31 08:29
PROVIDERS: ADMIT Surgery; ATTEND Surgery
PROC: 0FC98ZZ Extirpation of Matter from Common Bile Duct, Via Natural or Artificial Opening Endoscopic (ICD-10-PCS; 2018-05-30)
PROC: 0FT44ZZ Resection of Gallbladder, Percutaneous Endoscopic Approach (ICD-10-PCS; principal; 2018-05-30 19:15)
DX: K80.62 Calculus of gallbladder and bile duct with acute cholecystitis without obstruction (principal); K85.90 Acute pancreatitis without necrosis or infection, unspecified; K50.90 Crohn's disease, unspecified, without complications; Z88.0 Allergy status to penicillin; Z88.5 Allergy status to narcotic agent
CPT/HCPCS: 96374; A9585; G0378; J0690; J1100; J1170; J1610; J1885; J1956; J2405; J2550; J2704; J2710; Q9961